=== PATIENT | female | born 1955 | race Caucasian/White ===

== ENCOUNTER → 2016-07-30 | Day surgery (SDC) | payer OTHER ==
[~2016-07-30] VITALS: Ht 175.3 cm; Wt 98.4 kg
--- NOTE | 2016-07-30 11:30 | Operative Report ---
Operative/Inv Procedure Report Surgery Date: 07/30/16 Name of Procedure: Laparoscopic incarcerated incisional hernia repair Pre-Operative Diagnosis: Ventral hernia, incarcerated Post-Operative Diagnosis: Incarcerated incisional hernia Estimated Blood Loss: scant Surgeon/Tavern Car Attendant: ANDREI LOAIZA,SCOTT Levy/Eulalio GOMEZ Anesthesia: general endotracheal tube Implants: 12 cm Parietex mesh Operative/Procedure Note Note: After consent patient was brought to the operating room and laid supine. Gen. anesthesia was obtained and her abdomen was prepped and draped. Skin in the left upper quadrant was after local anesthesia and a transverse incision made sharply. We gained access to the peritoneum percutaneously using a 12 mm optical trocar. Pneumoperitoneum was achieved. 2, 5 elevator ports are placed in the left lower quadrant after local anesthesia was instilled and under direct vision the camera. There was a moderate sized incarcerated hernia just inferior to the umbilicus. The contents were that of omentum. The transverse colon near the site of the defect but did not enter it. We circumferentially dissected the orifice of the defect with cautery.'s allowed blunt mobilization of the omentum. It took quite some time to deliver the entire omentum out of the small defect. Eventually were able to reduce it and with the assistance of a blunt manipulation as well as electrocautery, the entire contents were reduced. The resultant fascial defect was 4 cm in greatest dimension. The preperitoneal fat above the defect was taken down revealing a very small umbilical defect. We measured the area and a 12 cm round mesh would be adequate to cover both areas. It was marked for orientation and 0 Kiowa-Zak sutures were placed in 4 quadrants. The mesh was then hydrated rolled up and placed the peritoneal cavity. It was unraveled below the defect. The sutures then brought up percutaneously in a sequential fashion. There were tied down. Once the mesh was in position, it was adhered to the abdominal wall in a double crown fashion using the absorbable tackers. Within remove the ports and allowed the gas to escape. The fascia and left upper quadrant was closed with 0 Vicryl suture. Skin incisions closed with 4-0 Vicryl. Steri-Strips and sterile dressing applied. Sponge and needle counts are correct Findings: 4 cm defect CC: CAPRI VICTORIA,HARMONY Grace
== END ==
LOC: STS 03:58
DX: K43.0 Incisional hernia with obstruction, without gangrene (principal)
CPT/HCPCS: C1781; J0131; J0690; J2250

== ENCOUNTER → 2016-10-27 | Day surgery (SDC) | payer OTHER ==
[~2016-10-27] VITALS: Ht 175.3 cm; Wt 99.8 kg
--- NOTE | 2016-10-27 13:21 | Operative Report ---
Operative/Inv Procedure Report Surgery Date: 10/27/16 Name of Procedure: Right lumpectomy with wire localization and sentinel lymph node biopsy Pre-Operative Diagnosis: Right breast cancer Post-Operative Diagnosis: Same Estimated Blood Loss: less than 50ml Surgeon/Body Work Auto Trimmer: SELENA LOAIZA,DAYA Chappell Anesthesia: laryngeal mask airway Specimens: [place] lymph node 2, right lumpectomy, cranial margin, caudal margin, medial margin, lateral margin, deep margin Operative/Procedure Note Note: Patient brought to the operating room on 10/27/2016 after preoperative wire localization and lymphoscintigraphy were performed those films were reviewed. Anesthesia was administered as well as 2 g of Ancef and the right breast was prepped and draped in a sterile fashion using ChloraPrep. 3 mL of methylene blue diluted with 2 mL's of saline was injected in the retroareolar fashion. The axilla was approached first. Local anesthesia 1% lidocaine exception Marcaine was given and a transverse incision was made in the lower axilla. Clavipectoral fascia was entered and the axilla was dissected. Lighted retractors were used to dissect deep in the axilla. 2 deep axillary lymph nodes were identified with increased counts and were excised. These were along the chest wall. Hemostasis achieved using clips. Deep tissue approximated using interrupted Vicryl sutures and the skin was closed using a running Biosyn subcuticular stitch. The breast was then approached. Local anesthesia was again given and a curvilinear incision was made at 9:00. The wire was brought into the incision. A wide lumpectomy was performed. The specimen was marked for orientation using margin map. Intraoperative x-ray confirmed the presence of clips in the specimen. The deep margin appeared close and therefore a very wide deep margin was reexcised. Additional margins were also taken in the cranial, caudal, medial, and lateral positions. The dissection started superficially at the subcutaneous fat. Hemostasis achieved using clips and suture ligatures. And the margins a lumpectomy bed were marked using mammary clips. Deep tissue was proximal made using interrupted Vicryl sutures and the skin was closed using a running Biosyn subcuticular stitch. Steri-Strips and sterile dressings were applied and the patient was transferred to the recovery room in satisfactory condition having tolerated the procedure well.
--- NOTE | 2016-10-27 13:28 | NUCLEAR MEDICINE REPORT ---
EXAMINATION: LYMPHOSCINTIGRAPHY CLINICAL INFORMATION: Right breast cancer. COMPARISON: None. TECHNIQUE: A total of 0.9 mCi technetium 99m Lymphoseek was injected in divided doses around the right areola by Dr. Pearson. Images of the right breast and axilla in the anterior, WHELAN, and right lateral projections were obtained with simultaneous visualization of the body silhouette using a cobalt flood source, with the patient positioned between the flood source and the gamma camera. FINDINGS: A lymphatic channel and a sentinal node are visualized in the right axilla. Several second echelon nodes are visualized in the right axilla. IMPRESSION: A sentinal node in the right axilla is well visualized.
--- NOTE | 2016-10-27 17:27 | MAMMOGRAPHY REPORT ---
EXAMINATION: MM PREOPERATIVE LOCALIZATION BREAST,Right CLINICAL INFORMATION: A 61-year-old female with invasive ductal carcinoma, diagnosed on ultrasound-guided biopsy done on 10/03/2016. Preoperative needle localization is requested. TECHNIQUE: After the details of the procedure, as well as the risks, benefits and alternatives to the procedure, were explained to the patient in detail, and all of her questions were answered, preoperative needle localization was performed. Mammographic imaging of the right breast in the LM projection confirms the presence of a tissue marker (ribbon-shaped) at the site of the prior ultrasound-guided biopsy at 10 o'clock, 8 cm from the nipple. The skin of the right breast was then cleansed with sterile solution. Using mammographic guidance, aseptic technique and 2% 8 mL lidocaine for local anesthesia, a 5 cm [employer] needle-wire system was advanced into the breast from a lateral approach. Orthogonal views were then obtained. Final adjustments of the needle tip position were made, and the wire deployed. The needle was taken out. The patient tolerated the procedure well, and was discharged from the department of radiology in good stable condition. The images were appropriately labelled. A worksheet was appropriately filled out and was sent with the patient to the OR. IMPRESSION: Successful mammographically-guided preoperative needle localization of the biopsy-proven invasive ductal carcinoma involving the right breast at 10 o'clock, 8 cm from the nipple without any complications. EXAMINATION: MM NEEDLE LOCALIZATION SPECIMEN FROM BREAST, RIGHT: TECHNIQUE: Single radiograph of the excised breast tissue is performed. FINDINGS: The specimen shows the hookwire is delivered intact. The biopsy clip marker and index calcifications are identified in the specimen. In addition, the second site of prior ultrasound-guided biopsy containing a tissue marker was also included within the specimen (this was localized at 10 o'clock, 10 cm from the nipple on prior ultrasound-guided biopsy). IMPRESSION: Successful needle localization of the biopsy proved invasive ductal carcinoma at 10 o'clock, 8 cm from the nipple. The second site of biopsy, containing a second tissue marker was also included within the specimen (from 10 o'clock, 10 cm from the nipple). Results were called to Dr. Cornejo in the operating room at the time of imaging. The histology report is pending.
== END ==
LOC: STS 03:48 → CBW.IIU 07:00 → STS 07:00 → CBW.IIU 08:00 → CBW.MAMMO 08:30
DX: C50.811 Malignant neoplasm of overlapping sites of right female breast (principal); Z17.0 Estrogen receptor positive status [ER+]; K21.9 Gastro-esophageal reflux disease without esophagitis; E66.9 Obesity, unspecified; Z68.32 Body mass index [BMI] 32.0-32.9, adult
CPT/HCPCS: A9520; J0690; J2001; J2250